=== PATIENT | male | born 1985 | race Hispanic/Latino ===

== ENCOUNTER 2024-09-24 11:04 | Emergency (ER) | payer SELFPAY ==
[~2024-09-24] VITALS: Ht 162.6 cm; Wt 60.0 kg
[2024-09-24] MEDS ORDERED: methylPREDNISolone SODIUM SUCC 125 MG/2 ML SDV IM ONE (12:30)
[2024-09-24] MEDS ORDERED: PERMETHRIN5 % EX (12:31)
[2024-09-24] MEDS ORDERED: ALL DAY10 MG PO (12:31)
[2024-09-24] MEDS ORDERED: PREDNISONE50 MG PO (12:31)
[2024-09-24 12:46] VITALS: BP 135/77
== END 2024-09-24 12:52 | disposition home or self-care (01) | DRG 607 ==
LOC: ED 11:04
DX: B86 Scabies (principal)